=== PATIENT | male | born 1970 | race African-American/Black ===

== ENCOUNTER 2016-07-30 06:17 | Emergency (ER) | payer OTHER ==
[~2016-07-30] VITALS: Ht 165.1 cm; Wt 96.6 kg
[~2016-07-30 06:17] MED LIST: BACTRIM,SEPT1 TABLET PO; BENADRYL25 MG PO; BENADRYL50 MG PO; CORTIZONE-1028 GM TP; KEFLEX500 MG PO; MEDROL DOSEPAK4 MG PO; MOTRIN; MOTRIN800 MG PO; MULTIVITAMIN PO; NOHOMEMEDS; NORCO 5/3251 TABLET PO; PERCOCET 5/31 TABLET PO
[2016-07-30 06:27] VITALS: BP 122/71
[2016-07-30 07:46] LABS: ADD MIUA? NO; BILIRUBIN NEGATIVE; BLOOD NEGATIVE; COLOR YELLOW ((YELLOW)); GLUCOSE (STRIP) NEGATIVE; KETONES NEGATIVE; LEUKOCYTES NEGATIVE; NITRITE NEGATIVE; PROTEIN (STRIP) NEGATIVE; SPECIFIC GRAVITY 1.031 (1.000-1.030); UCUL ADDED? NO; UROBILINOGEN 0.2 MG/DL (0.2-1.0)
[2016-08-02 12:42] LABS: CHLAMYDIA TRACHOMATIS NEGATIVE; NEISSERIA GONORRHOEAE NEGATIVE
== END 2016-07-30 08:50 | disposition home or self-care (01) ==
LOC: EME 06:17
PROVIDERS: Physician Assistant
DX: R36.9 Urethral discharge, unspecified (principal); Z91.011 Allergy to milk products
CPT/HCPCS: 81003; 87210; 87491; 87591; 99281; 99283

== ENCOUNTER 2016-08-13 01:04 | Emergency (ER) | payer OTHER ==
[~2016-08-13] VITALS: Ht 165.1 cm; Wt 95.3 kg
[2016-08-13] MEDS ORDERED: AMOXICILLIN500 MG PO (01:58)
[2016-08-13 02:05] VITALS: BP 127/76
== END 2016-08-13 02:07 | disposition home or self-care (01) ==
LOC: EME 01:04
DX: J02.9 Acute pharyngitis, unspecified (principal); J06.9 Acute upper respiratory infection, unspecified
CPT/HCPCS: 87651 90; 99281; 99284

== ENCOUNTER 2016-10-08 00:58 | Emergency (ER) | payer OTHER ==
[~2016-10-08] VITALS: Ht 165.1 cm; Wt 95.0 kg
[~2016-10-08 00:58] MED LIST changes: +AMOXICILLIN500 MG PO
[2016-10-08 01:37] LABS: ADD MIUA? NO; BILIRUBIN NEGATIVE; BLOOD NEGATIVE; COLOR YELLOW ((YELLOW)); GLUCOSE (STRIP) NEGATIVE; KETONES NEGATIVE; LEUKOCYTES NEGATIVE; NITRITE NEGATIVE; PROTEIN (STRIP) NEGATIVE; SPECIFIC GRAVITY 1.025 (1.000-1.030); UCUL ADDED? NO; UROBILINOGEN 0.2 MG/DL (0.2-1.0)
[2016-10-08 01:57] VITALS: BP 122/90
== END 2016-10-08 01:57 | disposition home or self-care (01) ==
LOC: EME 00:58 → RME 00:58
DX: R36.9 Urethral discharge, unspecified (principal); R30.0 Dysuria; Z20.2 Contact with and (suspected) exposure to infections with a predominantly sexual mode of transmission; Z11.3 Encounter for screening for infections with a predominantly sexual mode of transmission
CPT/HCPCS: 81003; 99281; 99284; J0696

== ENCOUNTER 2016-11-05 16:04 | Emergency (ER) | payer OTHER ==
[~2016-11-05] VITALS: Ht 165.1 cm; Wt 95.0 kg
[2016-11-05] MEDS ORDERED: FLEXERIL10 MG PO (17:58)
[2016-11-05] MEDS ORDERED: NAPROSYN500 MG PO (17:58)
[2016-11-05 18:02] VITALS: BP 120/75
== END 2016-11-05 18:07 | disposition home or self-care (01) ==
LOC: EME 16:04 → RME 16:04
DX: S39.012A Strain of muscle, fascia and tendon of lower back, initial encounter (principal); X50.0XXA Overexertion from strenuous movement or load, initial encounter; Y93.B9 Activity, other involving muscle strengthening exercises; Y92.39 Other specified sports and athletic area as the place of occurrence of the external cause
CPT/HCPCS: 99281; 99282

== ENCOUNTER 2016-12-14 08:14 | Emergency (ER) | payer OTHER ==
[~2016-12-14] VITALS: Ht 165.1 cm; Wt 92.1 kg
[~2016-12-14 08:14] MED LIST changes: +FLEXERIL10 MG PO; +NAPROSYN500 MG PO
[2016-12-14 09:00] LABS: ADD MIUA? NO; BILIRUBIN NEGATIVE; BLOOD NEGATIVE; COLOR YELLOW ((YELLOW)); GLUCOSE (STRIP) NEGATIVE; KETONES NEGATIVE; LEUKOCYTES NEGATIVE; NITRITE NEGATIVE; PROTEIN (STRIP) 30; SPECIFIC GRAVITY 1.027 (1.000-1.030); UCUL ADDED? NO; UROBILINOGEN 0.2 MG/DL (0.2-1.0)
[2016-12-14 10:00] VITALS: BP 130/74
[2016-12-15 13:01] LABS: CHLAMYDIA TRACHOMATIS NEGATIVE; NEISSERIA GONORRHOEAE NEGATIVE
== END 2016-12-14 10:22 | disposition home or self-care (01) ==
LOC: EME 08:14
DX: R36.9 Urethral discharge, unspecified (principal); Z20.2 Contact with and (suspected) exposure to infections with a predominantly sexual mode of transmission
CPT/HCPCS: 81003; 87491; 87591; 99281; 99284; J0696

== ENCOUNTER 2017-02-20 13:30 | Emergency (ER) | payer OTHER ==
[~2017-02-20] VITALS: Ht 165.1 cm; Wt 90.7 kg
[2017-02-20 13:59] VITALS: BP 112/64
[2017-02-20 14:34] LABS: ADD MIUA? NO; BILIRUBIN NEGATIVE; BLOOD NEGATIVE; COLOR YELLOW ((YELLOW)); GLUCOSE (STRIP) NEGATIVE; KETONES 20; LEUKOCYTES NEGATIVE; NITRITE NEGATIVE; PROTEIN (STRIP) NEGATIVE; SPECIFIC GRAVITY 1.024 (1.000-1.030); UCUL ADDED? NO; UROBILINOGEN 0.2 MG/DL (0.2-1.0)
== END 2017-02-20 17:15 | disposition home or self-care (01) ==
LOC: EME 13:30
PROVIDERS: Physician Assistant
DX: R36.9 Urethral discharge, unspecified (principal)
CPT/HCPCS: 81003; 87210; 99281; 99284; J0696

== ENCOUNTER 2017-09-30 01:34 | Emergency (ER) | payer OTHER ==
[~2017-09-30] VITALS: Ht 165.1 cm; Wt 93.1 kg
[2017-09-30 01:51] LABS: SOURCE URINE
[2017-09-30 01:55] LABS: APPEARANCE CLEAR ((CLEAR)); BILIRUBIN NEGATIVE; BLOOD NEGATIVE; COLOR YELLOW ((YELLOW)); GLUCOSE (STRIP) NEGATIVE; KETONES NEGATIVE; LEUKOCYTES SMALL; NITRITE NEGATIVE; PROTEIN (STRIP) NEGATIVE; SPECIFIC GRAVITY 1.027 (1.000-1.030); UROBILINOGEN 0.2 MG/DL (0.2-1.0)
[2017-09-30 02:03] LABS: BACTERIA RARE /HPF; EPITHELIAL CELLS NONE SEEN /HPF; MUCUS TRACE /LPF; RED BLOOD CELLS 0-5 /HPF (0-5); WHITE BLOOD CELLS 30-40 /HPF (0-5)
[2017-09-30] MEDS ORDERED: AZITHROMYCIN500 M1 PO (02:25)
[2017-09-30] MEDS ORDERED: DOXYCYCLINE HY100 MG PO (02:25)
[2017-09-30 02:38] VITALS: BP 122/78
[2017-09-30 13:26] LABS: CHLAMYDIA TRACHOMATIS POSITIVE; NEISSERIA GONORRHOEAE POSITIVE
== END 2017-09-30 02:39 | disposition home or self-care (01) ==
LOC: EME 01:34
PROVIDERS: Physician Assistant
DX: A74.9 Chlamydial infection, unspecified (principal); A54.9 Gonococcal infection, unspecified; Z91.011 Allergy to milk products
CPT/HCPCS: 81003; 85610; 85730; 87086; 87491; 87591; 99281; 99283

== ENCOUNTER 2017-10-10 09:45 | Emergency (ER) | payer OTHER ==
[~2017-10-10] VITALS: Ht 165.1 cm; Wt 93.9 kg
[~2017-10-10 09:45] MED LIST changes: +AZITHROMYCIN500 M1 PO; +DOXYCYCLINE HY100 MG PO
[2017-10-10 10:30] LABS: SOURCE URINE
[2017-10-10 10:35] LABS: APPEARANCE CLEAR ((CLEAR)); BILIRUBIN NEGATIVE; BLOOD NEGATIVE; COLOR YELLOW ((YELLOW)); GLUCOSE (STRIP) NEGATIVE; KETONES NEGATIVE; LEUKOCYTES NEGATIVE; NITRITE NEGATIVE; PROTEIN (STRIP) NEGATIVE; SPECIFIC GRAVITY 1.024 (1.000-1.030); UCUL ADDED? NO; UROBILINOGEN 0.2 MG/DL (0.2-1.0)
[2017-10-10 11:30] VITALS: BP 138/88
[2017-10-12 13:28] LABS: CHLAMYDIA TRACHOMATIS NEGATIVE; NEISSERIA GONORRHOEAE NEGATIVE
== END 2017-10-10 11:34 | disposition home or self-care (01) ==
LOC: EME 09:45
PROVIDERS: Nurse Practitioner Family
DX: Z20.2 Contact with and (suspected) exposure to infections with a predominantly sexual mode of transmission (principal); Z86.19 Personal history of other infectious and parasitic diseases; Z91.011 Allergy to milk products
CPT/HCPCS: 81003; 87491; 87591; 99281; 99284; J0696

== ENCOUNTER 2017-11-18 14:14 | Emergency (ER) | payer OTHER ==
[~2017-11-18] VITALS: Ht 165.1 cm; Wt 94.0 kg
[2017-11-18 14:50] VITALS: BP 134/83
[2017-11-18 16:45] LABS: SOURCE URINE
[2017-11-18 16:53] LABS: APPEARANCE CLEAR ((CLEAR)); BILIRUBIN NEGATIVE; BLOOD NEGATIVE; COLOR YELLOW ((YELLOW)); GLUCOSE (STRIP) NEGATIVE; KETONES NEGATIVE; LEUKOCYTES TRACE; NITRITE NEGATIVE; PROTEIN (STRIP) NEGATIVE; SPECIFIC GRAVITY 1.032 (1.000-1.030); UROBILINOGEN 0.2 MG/DL (0.2-1.0)
[2017-11-18 17:20] LABS: BACTERIA NONE SEEN /HPF; EPITHELIAL CELLS NONE SEEN /HPF; MUCUS TRACE /LPF; RED BLOOD CELLS 0-5 /HPF (0-5); UCUL ADDED? YES
[2017-11-21 15:20] LABS: CHLAMYDIA TRACHOMATIS NEGATIVE; NEISSERIA GONORRHOEAE NEGATIVE
== END 2017-11-18 16:33 | disposition home or self-care (01) ==
LOC: EME 14:14
PROVIDERS: Physician Assistant
DX: R36.9 Urethral discharge, unspecified (principal); Z20.2 Contact with and (suspected) exposure to infections with a predominantly sexual mode of transmission; Z91.011 Allergy to milk products
CPT/HCPCS: 81003; 87086; 87491; 87591; 99281; 99283; J0696

== ENCOUNTER 2018-02-12 21:21 | Emergency (ER) | payer OTHER ==
[~2018-02-12] VITALS: Ht 165.1 cm; Wt 95.8 kg
[2018-02-12 21:39] VITALS: BP 142/79
[2018-02-13] MEDS ORDERED: NAPROSYN500 MG PO (00:13)
== END 2018-02-13 00:27 | disposition home or self-care (01) ==
LOC: EME 21:21
DX: S43.401A Unspecified sprain of right shoulder joint, initial encounter (principal); Y93.B3 Activity, free weights
CPT/HCPCS: 73030